=== PATIENT | female | born 1965 | race Caucasian/White ===

== ENCOUNTER 2019-05-06 20:14 | Emergency (ER) | payer BC, OTHER, SELFPAY ==
--- NOTE | 2019-05-06 20:19 | DI.RAD.S_ITS ---
PROCEDURE: XR KNEE RT 3V INDICATIONS: Fall on R knee TECHNIQUE: 3 views of the knee were acquired. COMPARISON: None. FINDINGS: Bones: No fractures or dislocations. No suspicious bony lesions. Soft tissues: No joint effusion. No suspicious soft tissue calcifications. IMPRESSION: No fracture or foreign body. A soft tissue distortion is seen superficial to the quadriceps tendon and and a partial thickness tendon injury conceivably could be present. Depending on the clinical status followup by MR scanning may be warranted. Dictated by: Marino Funk M.D. on 05/06/2019 at 20:37 Approved by: Marino Funk M.D. on 05/06/2019 at 20:39
[2019-05-06 20:24] VITALS: BP 133/83; PULSE 84; RESP 16; O2SAT 99; BMI 28.1
[2019-05-06 20:25] VITALS: PULSE 70
--- NOTE | 2019-05-06 20:27 | ED.LOWEXIN ---
HPI - Extremity Injury (Lower) General Chief Complaint: Extremity Injury, Lower Stated Complaint: rt knee injury Time Seen by Provider: 05/06/19 20:19 Source: patient Mode of arrival: Ambulatory Limitations: no limitations History of Present Illness HPI Narrative: Patient is a 53-year-old female who presents with right knee injury. She admits to drinking this evening she tripped and fell cutting open her knee. She has quite impressive laceration right over her patella. She has no numbness tingling she is able to bend it and ambulate. She has a small abrasion on her left elbow as well she denies have any head injury there's no loss of consciousness. MD complaint: knee injury Related Data Previous Rx's Medication Instructions Recorded cephalexin [Keflex] 500 mg PO TID #21 cap 05/06/19 Allergies Allergy/AdvReac Type Severity Reaction Status Date / Time Penicillins Allergy Verified 05/06/19 21:49 Patient History Medical History Patient denies significant medical history (Acute) Social History Smoking Status: Current every day smoker alcohol intake: current Exam Initial Vital Signs Initial Vital Signs: Vital Signs Pulse Rate 84 05/06/19 20:24 Respiratory Rate 16 05/06/19 20:24 Blood Pressure 133/83 05/06/19 20:24 Pulse Oximetry 99 05/06/19 20:24 GENERAL: Well-appearing, well-nourished and in no acute distress. CARDIOVASCULAR: peripheral pulses in tact, cap refill <2 sec RESPIRATORY: No respiratory distress, speaks in full sentences without difficulty EXTREMITIES: Normal range of motion, no clubbing or edema. Neurovascularly intact Right knee 14 cm laceration over the patella. Patient is able to completely flex and extend the knee. Fascia is noted there is a small laceration in the fascia tendon is exposed but appears to be intact. Neurovascularly she is intact good strong distal pedal pulse sensation intact distally. Good skin approximation no obvious tendon injury. NEUROLOGICAL: Cranial nerves II through XII grossly intact. Normal gait and speech. SKIN: Warm, dry, no petechiae, no rashes or lesions. Procedures Laceration Repair Laceration 1: Site: lower extremity Side (If applicable): right Size (cm): 13.5 Description: linear Depth: simple, single layer Local Anesthetic: lidocaine 2% and with epi Amount of anesthesia used (mL): 20 Pre-repair: irrigated extensively and deep structures intact Skin layer closed with: nylon Size (cm): 4-0 Number of sutures: 14 Technique: simple, interrupted Subcutaneous layer closed with: vicryl Size: 4-0 Number of sutures: 6 Technique: other (Mattress) Orthopedic Splinting/Casting Injury #1: Side: right Lower Extremity Immobilizer: knee immobilizer Post splinting neuro exam: intact Post splinting vascular exam: intact Placed by: Nursing Course Orders Ordered: ED Orders 05/06/19 20:19 XR knee RT 3V Stat Discontinued Medications Diphtheria/Tetanus/Acell Pertussis (Adacel) 0.5 ml IM .ONCE ONE Stop: 05/06/19 20:31 Last Admin: 05/06/19 20:36 Dose: 0.5 ml Documented by: ARRINGTO Lidocaine/Epinephrine (Xylocaine 2% W/Epi) 20 ml INJ INTRA-OP ONE Stop: 05/06/19 20:31 Last Admin: 05/06/19 20:36 Dose: 20 ml Documented by: ARRINGTO Vital Signs Vital signs: Vital Signs - 8 hr 05/06/19 20:24 05/06/19 20:25 05/06/19 20:31 Temperature 97.6 F Pulse Rate 84 Pulse Rate [Right Dorsalis Pedis] 70 Respiratory Rate 16 Blood Pressure 133/83 Blood Pressure [Right Arm] Pulse Oximetry 99 05/06/19 21:53 Temperature Pulse Rate 81 Pulse Rate [Right Dorsalis Pedis] Respiratory Rate 19 Blood Pressure Blood Pressure [Right Arm] 133/76 Pulse Oximetry 100 MDM - Extremity Injury (Lower) Imaging Data right knee: Radiologist's impression: PROCEDURE: XR KNEE RT 3V INDICATIONS: Fall on R knee TECHNIQUE: 3 views of the knee were acquired. COMPARISON: None. FINDINGS: Bones: No fractures or dislocations. No suspicious bony lesions. Soft tissues: No joint effusion. No suspicious soft tissue calcifications. IMPRESSION: No fracture or foreign body. A soft tissue distortion is seen superficial to the quadriceps tendon and and a partial thickness tendon injury conceivably could be present. Depending on the clinical status followup by MR scanning may be warranted. Dictated by: Marino Funk M.D. on 05/06/2019 at 20:37 MDM Narrative Medical decision making narrative: NO BONE EXPOSED FASCIA AND A SMALL AREA OF TENDON WELL. TENDON APPEARS TO BE FULLY INTACT SHE HAS FULL RANGE OF MOTION. Laceration came together nicely. She is given a knee immobilizer to help with healing of laceration. X-ray is negative. Discharge Plan Departure Patient Disposition: Home Clinical Impression: Laceration of knee, right Qualifiers: Encounter type: initial encounter Qualified Code(s): S81.011A - Laceration without foreign body, right knee, initial encounter Discharge Date/Time: 05/06/19 22:06 Instructions: DI for Laceration Repair -- Complex Activity Restrictions/Additional Instructions: *You have been diagnosed with laceration right knee *What to do: -sutures removed in 7-10 days by your PCP, walk-in clinic or return to emergency department Keep wound clean and dry with soap and water apply Neosporin to area. Wear knee brace while active during the day to help wound heal, may take off to shower and sleep, once wound is scabbed over and sutures removed he will no longer need the immobilizer. *Continue to take medications as directed Keflex 500 mg 3 times a day for 7 days-start tomorrow *Follow up with your primary care provider in 2-3 days *Return to ER if you should have redness, pus, swelling or any new, worsening or concerning symptoms Prescriptions: New cephalexin [Keflex] 500 mg capsule 500 mg PO TID Qty: 21 RF: 0 Referrals: [facility] [Outside]
[2019-05-06 20:31] VITALS: TEMP 36.4
[2019-05-06] MEDS: TET,DIPH,PERTUSS(ACELL),VAC/PF 0.5 ML SYRINGE IM (20:36)
[2019-05-06] MEDS: LIDOCAINE 2% W/EPI INJ 20 ML INJ (20:36)
--- NOTE | 2019-05-06 20:37 | PC.NURSE ---
lidocaine administered by LIP
[2019-05-06 21:53] VITALS: BP 133/76; PULSE 81; RESP 19; O2SAT 100
== END 2019-05-06 22:06 | disposition home or self-care (01) ==
PROVIDERS: Emergency Provider Emergency Medicine
DX: S81.011A Laceration without foreign body, right knee, initial encounter (principal); W01.0XXA Fall on same level from slipping, tripping and stumbling without subsequent striking against object, initial encounter
CPT/HCPCS: 12005; 73562; 90471; 99283; 90715